=== PATIENT | male | born 1985 | race Caucasian/White ===

== ENCOUNTER 2018-07-14 15:30 | Emergency (ER) | payer SELFPAY ==
[~2018-07-14] VITALS: Ht 167.6 cm; Wt 86.0 kg
[2018-07-14 17:55] VITALS: BP 127/87
== END 2018-07-14 17:55 | disposition home or self-care (01) ==
LOC: ER 15:30
DX: F41.9 Anxiety disorder, unspecified (principal); F15.10 Other stimulant abuse, uncomplicated; F17.210 Nicotine dependence, cigarettes, uncomplicated
CPT/HCPCS: 73130; 99284; 99406; Z7610